=== PATIENT | male | born 1970 | race Caucasian/White ===

== ENCOUNTER 2017-11-29 12:15 | Emergency (ER) | payer OTHER ==
[2017-11-29 12:22] VITALS: BP 116/82; PULSE 85; RESP 18; TEMP 98.5
[2017-11-29] MEDS ORDERED: DIPH,PERTUS(ACELL)TETVAC-LF 0.5 ML VIAL IM ONE (12:27)
[2017-11-29] MEDS ORDERED: TOPICAL SKIN ADHESIVE 1 EACH AMP TOPICAL ONE (12:36)
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
[2017-11-29] MEDS ORDERED: IBUPROFEN 600 MG TAB PO STA (13:02)
--- NOTE | 2017-11-29 13:19 | XR ---
EXAMINATION TYPE: XR hand limited RT DATE OF EXAM: 11/29/2017 CLINICAL HISTORY: pain TECHNIQUE: Frontal, lateral images of the right hand are obtained. COMPARISON: 12/18/2011 FINDINGS: There is no acute fracture/dislocation evident. The joint spaces appear within normal limi ts. The overlying soft tissue appears unremarkable. IMPRESSION: There is no acute fracture or dislocation ICD 10 NO FRACTURE, INITIAL EVALUATION
== END 2017-11-29 13:35 | disposition home or self-care (01) ==
LOC: EC 12:15
DX: S01.81XA Laceration without foreign body of other part of head, initial encounter (principal); M79.644 Pain in right finger(s); F17.200 Nicotine dependence, unspecified, uncomplicated; Z23 Encounter for immunization; W22.8XXA Striking against or struck by other objects, initial encounter; V89.2XXA Person injured in unspecified motor-vehicle accident, traffic, initial encounter; Y93.I9 Activity, other involving external motion; Y92.69 Other specified industrial and construction area as the place of occurrence of the external cause; Y99.0 Civilian activity done for income or pay
CPT/HCPCS: 12011; 90471; 90715; 99283

== ENCOUNTER 2018-02-11 06:33 | Emergency (ER) | payer OTHER ==
[2018-02-11 06:39] VITALS: BP 109/74; PULSE 64; RESP 18; TEMP 98
[2018-02-11] MEDS ORDERED: KETOROLAC 60 MG/2 ML VIAL IM STA (07:12)
[2018-02-11] MEDS ORDERED: ORPHENADRINE 30 MG/ML 2 ML VIAL IM STA (07:12)
--- NOTE | 2018-02-11 07:15 | ED ---
Back Pain HPI - General Chief Complaint: Back Pain/Injury Stated Complaint: back pain Time Seen by Provider: 02/11/18 07:03 Source: patient, RN notes reviewed, old records reviewed Limitations: no limitations - History of Present Illness Initial Comments: Patient is a 47-year-old male with chief complaint of lower back pain, worse with movement and ambulation 3 days. Patient reports that he does work in [employer]. 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 Patient reports that he is a taking ibuprofen and naproxen for pain relief, but it is not helping anymore. He reports the pain seems to be somewhat worse over the right side. He denies any abdominal pain. He denies any peripheral paresthesias or saddle anesthesias.Patient denies any recent fever, chills, shortness of breath, chest pain, abdominal pain, nausea vomiting , numbness or tingling, dysuria or hematuria, constipation or diarrhea, headaches or visual changes, or any other current symptoms - Related Data Home Medications Medication Instructions Recorded Confirmed Aspirin EC [Ecotrin] 325 mg PO DAILY PRN 01/22/17 01/22/17 Previous Rx's Medication Instructions Recorded Acetaminophen-Codeine 300-30mg 1 tab PO Q4H PRN #20 tablet 01/22/17 [Tylenol #3] Cephalexin [Keflex] 500 mg PO Q6HR #40 cap 01/22/17 Ibuprofen [Motrin] 600 mg PO Q8HR PRN #30 tab 01/22/17 Cyclobenzaprine [Flexeril] 10 mg PO TID #12 tab 02/11/18 Ibuprofen 600 mg PO TID #30 tablet 02/11/18 traMADol HCl [Ultram] 50 mg PO Q4HR PRN 3 Days #18 tab 02/11/18 Allergies Allergy/AdvReac Type Severity Reaction Status Date / Time No Known Allergies Allergy Verified 02/11/18 06:38 Review of Systems ROS Statement: Those systems with pertinent positive or pertinent negative responses have been documented in the HPI. ROS Other: All systems not noted in ROS Statement are negative. Past Medical History Past Medical History: No Reported History History of Any Multi-Drug Resistant Organisms: None Reported Past Surgical History: No Surgical Hx Reported Past Psychological History: ADD/ADHD, Anxiety Smoking Status: Current every day smoker Past Alcohol Use History: None Reported Past Drug Use History: None Reported General Exam - General Exam Comments Initial Comments: Well-appearing 47-year-old male. Alert and oriented. Patient appears in no acute distress. Limitations: no limitations General appearance: alert, in no apparent distress Head exam: Present: atraumatic, normocephalic, normal inspection Eye exam: Present: normal appearance, PERRL, EOMI. Absent: scleral icterus, conjunctival injection, periorbital swelling ENT exam: Present: normal exam, mucous membranes moist Neck exam: Present: normal inspection. Absent: tenderness, meningismus, lymphadenopathy Respiratory exam: Present: normal lung sounds bilaterally. Absent: respiratory distress, wheezes, rales, rhonchi, stridor Cardiovascular Exam: Present: regular rate, normal rhythm, normal heart sounds. Absent: systolic murmur, diastolic murmur, rubs, gallop, clicks GI/Abdominal exam: Present: soft, normal bowel sounds. Absent: distended, tenderness, guarding, rebound, rigid Extremities exam: Present: normal inspection, full ROM, normal capillary refill. Absent: tenderness, pedal edema, joint swelling, calf tenderness Back exam: Present: normal inspection, full ROM, tenderness (Over lumbar spine) , muscle spasm, paraspinal tenderness (Patient has lumbar spinal right-sided paraspinal tenderness. Evidence of muscle spasms) Neurological exam: Present: alert, oriented X3, CN II-XII intact Psychiatric exam: Present: normal affect, normal mood Course Vital Signs 02/11/18 06:36 Temperature 98.0 F Pulse Rate 64 Respiratory 18 Rate Blood Pressure 109/74 O2 Sat by Pulse 98 Oximetry Medical Decision Making - Medical Decision Making Patient is a 47-year-old male presents for started to complain of right-sided back pain, worse with past 3 days with ambulation and movement. Patient has lumbar and right-sided para month spinal muscle tenderness. Evidence of muscle spasms at this time. Patient was given IM Norflex and Toradol. He does have some improvement of pain. Denies saddle anesthesias. X-rays were completed today do show mild degenerative changes. No acute osseous lesions. Patient at this time will be discharged with a short course of muscle relaxers, pain medication and anti-inflammatory medication. Discussed close follow-up with orthopedic and primary care physician. All questions answered and return parameters were discussed. - Radiology Data Radiology results: report reviewed No acute osseous lesion. There is mild degenerative changes noted. Mild disc space loss at L1 and L2. Mild hypertrophic spondylolysis at T12-L1 L2-L3. Pedicles intact. Disposition Clinical Impression: DDD (degenerative disc disease), lumbar, Spasm of back muscles Disposition: HOME SELF-CARE Condition: Good Instructions: Acute Low Back Pain (ED) Additional Instructions: Patient advised to take the medications as prescribed. Patient should apply warm compresses over the area to help relax the muscles. Patient should follow- up with back specialist. Return to emergency department if any alarming signs or symptoms occur. Prescriptions: Cyclobenzaprine [Flexeril] 10 mg PO TID #12 tab Ibuprofen 600 mg PO TID #30 tablet traMADol HCl [Ultram] 50 mg PO Q4HR PRN 3 Days #18 tab PRN Reason: Pain Is patient prescribed a controlled substance at d/c from ED?: Yes When asked, does pt state using other controlled substances?: Yes If prescribed controlled substance>3 days was MAPS reviewed?: Prescribed <3 Days If opioid is for acute pain is fill amount 7 days or less?: Yes If Rx opioid, was Start Talking consent form obtained?: Yes Referrals: None,Stated [Primary Care Provider] - 1-2 days Sandra Canseco DO [Doctor of Osteopathic Medicine] - 1-2 days Jaret Daugherty DO [Doctor of Osteopathic Medicine] - 1-2 days Time of Disposition: 07:53
--- NOTE | 2018-02-11 07:48 | XR ---
EXAMINATION TYPE: XR lumbar spine 2 or 3V , 3 VIEWS DATE OF EXAM ORDERED: 02/11/2018 HISTORY: Pain. COMPARISON: None. FINDINGS: There is a gentle levoscoliosis. Vertebral body height and alignment are maintained. There is no spondylolysis or spondylolisthesis. T here is mild disc space loss at L1-2. There is mild hypertrophic spondylosis at T12-L1 and L2-3. The pedicles are intact. IMPRESSION: 1. NO ACUTE OSSEOUS LESION. 2. MILD DEGENERATIVE CHANGE.
== END 2018-02-11 08:09 | disposition home or self-care (01) ==
LOC: EC 06:33
DX: M51.36 Other intervertebral disc degeneration, lumbar region (principal); M47.896 Other spondylosis, lumbar region; F17.200 Nicotine dependence, unspecified, uncomplicated
CPT/HCPCS: 72100; 99284; 96372 ×2; J2360; J1885

== ENCOUNTER 2018-07-19 08:44 | Inpatient (IN) | payer OTHER ==
[2018-07-19] MEDS ORDERED: SODIUM CHLORIDE 0.9% 1,000 ML IV STA ×2 (09:02)
[2018-07-19] MEDS ORDERED: IPRATROPIUM-ALBUTEROL 3 ML NEB INHALATION STA ×2 (09:02→10:23)
[2018-07-19] MEDS ORDERED: SODIUM CHLORIDE 0.9% 500 ML 500 ML IV STA (09:02)
--- NOTE | 2018-07-19 09:04 | ED ---
SOB HPI - General Chief Complaint: Shortness of Breath Stated Complaint: Fever Time Seen by Provider: 07/19/18 09:01 Source: patient, RN notes reviewed, old records reviewed Mode of arrival: ambulatory Limitations: no limitations - History of Present Illness Initial Comments: This is a 47-year-old male the ER for evaluation presented for evaluation of c ough and congestion. No chest pain. Patient afebrile and off for a week patient's been getting better but this point is continues to feel worse. No travel history no known significant sick contacts. No recent hospitalizations. Patient is underlying smoker but no history of COPD MD Complaint: shortness of breath, cough -: week(s) Severity scale (1-10): 5 Consistency: constant Improves With: rest Worsens With: exertion Known History Of: COPD Context: recent URI Associated Symptoms: fever, cough - Related Data Home Medications Medication Instructions Recorded Confirmed Dm/Acetaminophen/Doxylamine [Vicks 30 ml PO Q6H PRN 07/19/18 07/19/18 Nyquil Cold-Flu Liquid] Allergies Allergy/AdvReac Type Severity Reaction Status Date / Time No Known Allergies Allergy Verified 07/19/18 09:32 Review of Systems ROS Statement: Those systems with pertinent positive or pertinent negative responses have been documented in the HPI. ROS Other: All systems not noted in ROS Statement are negative. Past Medical History Past Medical History: No Reported History History of Any Multi-Drug Resistant Organisms: None Reported Past Surgical History: No Surgical Hx Reported Past Psychological History: ADD/ADHD, Anxiety Smoking Status: Current every day smoker Past Alcohol Use History: None Reported Past Drug Use History: None Reported General Exam Limitations: no limitations General appearance: alert, in no apparent distress Head exam: Present: atraumatic, normocephalic, normal inspection Eye exam: Present: normal appearance, PERRL, EOMI. Absent: scleral icterus, conjunctival injection, periorbital swelling ENT exam: Present: normal exam, mucous membranes moist Neck exam: Present: normal inspection. Absent: tenderness, meningismus, lymphadenopathy Respiratory exam: Present: wheezes, accessory muscle use, decreased breath sounds, prolonged expiratory. Absent: respiratory distress, rales, rhonchi, stridor Cardiovascular Exam: Present: normal rhythm, tachycardia, normal heart sounds. Absent: systolic murmur, diastolic murmur, rubs, gallop, clicks GI/Abdominal exam: Present: soft, normal bowel sounds. Absent: distended, tenderness, guarding, rebound, rigid Extremities exam: Present: normal inspection, full ROM, normal capillary refill. Absent: tenderness, pedal edema, joint swelling, calf tenderness Back exam: Present: normal inspection Neurological exam: Present: alert, oriented X3, CN II-XII intact Psychiatric exam: Present: normal affect, normal mood Skin exam: Present: warm, dry, intact, normal color. Absent: rash Course Vital Signs 07/19/18 07/19/18 07/19/18 08:59 09:25 09:30 Temperature 97.9 F Pulse Rate 102 H 77 Respiratory 24 18 18 Rate Blood Pressure 110/75 125/84 O2 Sat by Pulse 95 92 L Oximetry 07/19/18 07/19/18 07/19/18 09:36 09:46 10:33 Temperature Pulse Rate 74 74 80 Respiratory Rate Blood Pressure O2 Sat by Pulse Oximetry 07/19/18 10:50 Temperature Pulse Rate 90 Respiratory Rate Blood Pressure O2 Sat by Pulse Oximetry - Reevaluation(s) Reevaluation #1: 07/19/18 10:25 Neck record reviewed Reevaluation #2: 07/19/18 10:25 Patient is improving with breathing treatments Medical Decision Making - Medical Decision Making 47 male the ER for evaluation cough congestion positive bronchitis, severe bronchitis. Patient improvement with breathing treatments. - Lab Data Result diagrams: 07/19/18 09:33 07/19/18 09:33 Lab Results 07/19/18 07/19/18 07/19/18 Range/Units 09:33 09:33 09:33 WBC 12.1 H (3.8-10.6) k/uL RBC 5.40 (4.30-5.90) m/uL Hgb 16.4 (13.0-17.5) gm/dL Hct 50.2 (39.0-53.0) % MCV 92.9 (80.0-100.0) fL MCH 30.4 (25.0-35.0) pg MCHC 32.7 (31.0-37.0) g/dL RDW 12.9 (11.5-15.5) % Plt Count 202 (150-450) k/uL Neutrophils % 83 % Lymphocytes % 10 % Monocytes % 5 % Eosinophils % 0 % Basophils % 0 % Neutrophils # 10.0 H (1.3-7.7) k/uL Lymphocytes # 1.2 (1.0-4.8) k/uL Monocytes # 0.6 (0-1.0) k/uL Eosinophils # 0.1 (0-0.7) k/uL Basophils # 0.0 (0-0.2) k/uL Sodium 141 (137-145) mmol/L Potassium 4.0 (3.5-5.1) mmol/L Chloride 107 (98-107) mmol/L BUN 18 (9-20) mg/dL Creatinine 0.80 (0.66-1.25) mg/dL Est GFR (CKD-EPI)AfAm >90 (>60 ml/min/1.73 sqM) Est GFR (CKD-EPI)NonAf >90 (>60 ml/min/1.73 sqM) Glucose 121 H (74-99) mg/dL Calcium 9.6 (8.4-10.2) mg/dL Magnesium 2.2 (1.6-2.3) mg/dL Total Bilirubin 1.0 (0.2-1.3) mg/dL AST 61 H (17-59) U/L ALT 64 (21-72) U/L Alkaline Phosphatase 170 H (38-126) U/L Troponin I (0.000-0.034) ng/mL Total Protein 8.1 (6.3-8.2) g/dL Albumin 4.4 (3.5-5.0) g/dL Influenza Type A RNA Not Detected (Not Detectd) Influenza Type B (PCR) Not Detected (Not Detectd) 07/19/18 Range/Units 09:33 WBC (3.8-10.6) k/uL RBC (4.30-5.90) m/uL Hgb (13.0-17.5) gm/dL Hct (39.0-53.0) % MCV (80.0-100.0) fL MCH (25.0-35.0) pg MCHC (31.0-37.0) g/dL RDW (11.5-15.5) % Plt Count (150-450) k/uL Neutrophils % % Lymphocytes % % Monocytes % % Eosinophils % % Basophils % % Neutrophils # (1.3-7.7) k/uL Lymphocytes # (1.0-4.8) k/uL Monocytes # (0-1.0) k/uL Eosinophils # (0-0.7) k/uL Basophils # (0-0.2) k/uL Sodium (137-145) mmol/L Potassium (3.5-5.1) mmol/L Chloride (98-107) mmol/L BUN (9-20) mg/dL Creatinine (0.66-1.25) mg/dL Est GFR (CKD-EPI)AfAm (>60 ml/min/1.73 sqM) Est GFR (CKD-EPI)NonAf (>60 ml/min/1.73 sqM) Glucose (74-99) mg/dL Calcium (8.4-10.2) mg/dL Magnesium (1.6-2.3) mg/dL Total Bilirubin (0.2-1.3) mg/dL AST (17-59) U/L ALT (21-72) U/L Alkaline Phosphatase (38-126) U/L Troponin I <0.012 (0.000-0.034) ng/mL Total Protein (6.3-8.2) g/dL Albumin (3.5-5.0) g/dL Influenza Type A RNA (Not Detectd) Influenza Type B (PCR) (Not Detectd) - EKG Data -: EKG Interpreted by Me (EKG shows sinus rhythm rate of 79, MT 136, QRS 110, QTc 470) - Radiology Data Radiology results: report reviewed (S x-rays negative for acute disease), image reviewed Disposition Clinical Impression: Acute exacerbation of chronic obstructive airways disease Disposition: ADMITTED IP TO THIS HOSP Condition: Good Instructions (If sedation given, give patient instructions): Acute Bronchitis (ED) Is patient prescribed a controlled substance at d/c from ED?: No Referrals: None,Stated [Primary Care Provider] - 1-2 days
[2018-07-19 09:58] LABS: Basophils % (A) 0 %; Eosinophils # (A) 0.1 k/uL (0-0.7); Eosinophils % (A) 0 %; HCT 50.2 % (39.0-53.0); HGB 16.4 gm/dL (13.0-17.5); Lymphocytes # (A) 1.2 k/uL (1.0-4.8); Lymphocytes % (A) 10 %; MCH 30.4 pg (25.0-35.0); MCHC 32.7 g/dL (31.0-37.0); MCV 92.9 fL (80.0-100.0); Monocytes # (A) 0.6 k/uL (0-1.0); Monocytes % (A) 5 %; Neutrophils % (A) 83 %; Platelet Count 202 k/uL (150-450); RDW 12.9 % (11.5-15.5); WBC 12.1 k/uL (3.8-10.6)
--- NOTE | 2018-07-19 10:11 | XR ---
EXAMINATION TYPE: XR chest 2V DATE OF EXAM: 07/19/2018 COMPARISON: Prior chest x-ray 01/26/2015 HISTORY: Difficulty breathing TECHNIQUE: Frontal and lateral views of the chest are obtained. FINDINGS: There is no focal air space opacity, pleural effusion, or pneumothorax seen. The cardiac silhouette size is within normal limits. The osseous structures are intact, there is a spinal curva ture. Prominent lung volume may be indicative of underlying COPD. There is bronchial wall thickening. IMPRESSION: Correlate for bronchiolitis, reactive airways disease.
[2018-07-19 10:15] LABS: ALT 64 U/L (21-72); AST 61 U/L (17-59); Albumin 4.4 g/dL (3.5-5.0); Alkaline Phosphatase 170 U/L (38-126); Blood Urea Nitrogen 18 mg/dL (9-20); Calcium 9.6 mg/dL (8.4-10.2); Chloride 107 mmol/L (98-107); Glucose 121 mg/dL (74-99); Magnesium 2.2 mg/dL (1.6-2.3); Sodium 141 mmol/L (137-145); Total Protein 8.1 g/dL (6.3-8.2)
[2018-07-19] MEDS ORDERED: methylPREDNISolone SOD SUCCI 125 MG/2 ML VIAL IV STA (10:23)
[2018-07-19] MEDS ORDERED: AZITHROMYCIN 500 MG in SODIUM CHLORIDE 0.9% 250 ML IVPB STA (10:26)
[2018-07-19 11:02] LABS: Anion Gap 11 mmol/L; Carbon Dioxide 23 mmol/L (22-30)
[2018-07-19] MEDS: methylPREDNISolone SOD SUCCI 125 MG/2 ML VIAL IV SCH ×2 (12:38→20:24)
[2018-07-19] MEDS: SODIUM CHLORIDE 0.9% 1,000 ML IV SCH (12:39)
[2018-07-19 14:19] VITALS: BMI 29.7
[2018-07-19] MEDS ORDERED: INFLUENZA VACCINE (6 MOS+) 60 MCG/0.5 ML SYRINGE IM ONE (14:22)
[2018-07-19] MEDS ORDERED: PNEUMOCOCCAL VACC-PNEUMOVAX 23 25 MCG/0.5 ML VIAL IM ONE (14:22)
[2018-07-19] MEDS: IPRATROPIUM-ALBUTEROL 3 ML NEB INHALATION SCH ×3 (16:05→19:35)
[2018-07-19] MEDS: NICOTINE 21MG/24HR PATCH TRANSDERM SCH (20:23)
[2018-07-19] MEDS: guaiFENesin-Coden 100-10MG/5ML 10 ML CUP PO PRN (20:27)
[2018-07-20] MEDS: methylPREDNISolone SOD SUCCI 125 MG/2 ML VIAL IV SCH ×5 (01:44→23:59)
[2018-07-20] MEDS: SODIUM CHLORIDE 0.9% 1,000 ML IV SCH ×3 (05:47→18:35)
[2018-07-20 06:45] LABS: Glucose,Whole Blood 160 mg/dL (75-99)
[2018-07-20] MEDS: NICOTINE 21MG/24HR PATCH TRANSDERM SCH (08:38)
[2018-07-20] MEDS: AZITHROMYCIN 500 MG TAB PO SCH (08:39)
[2018-07-20] MEDS: INSULIN ASPART (NovoLOG) 100 UNIT/ML VIAL SQ SCH ×4 (08:39→20:35)
[2018-07-20] MEDS: BUDESONIDE 0.5 MG/2 ML NEBU INHALATION SCH ×2 (08:43→21:10)
[2018-07-20] MEDS: IPRATROPIUM-ALBUTEROL 3 ML NEB INHALATION SCH ×4 (08:43→21:09)
[2018-07-20 11:32] LABS: Glucose,Whole Blood 183 mg/dL (75-99)
[2018-07-20 16:43] LABS: Glucose,Whole Blood 224 mg/dL (75-99)
[2018-07-20] MEDS: ACETAMINOPHEN TAB 325 MG TAB PO PRN (17:35)
--- NOTE | 2018-07-20 18:56 | HP ---
HISTORY AND PHYSICAL CHIEF COMPLAINT: COPD and respiratory failure, failing outpatient treatment. HISTORY OF PRESENT ILLNESS: This is the first known admission for this 47-year-old white male who presented to the emergency room with cough and congestion and shortness of breath. This had been going on for about a week. He is not febrile. He has had no hemoptysis, purulent sputum production, chest pain, etc. He has otherwise been in fairly good health. Laboratory studies in the emergency room demonstrated white count of 12,100. His hematocrit was high at 50.2. He was admitted for inpatient treatment. REVIEW OF SYSTEMS: Review of systems was otherwise normal. He has had no heart disease, nausea, vomiting, hematemesis, renal disease, diabetes, etc. He has not been on any medications at home. PHYSICAL EXAMINATION: Blood pressure 122/66, pulse of 92, respirations 17, temperature 98.3. In general he appeared to be slender. He had no acute distress. He did have a harsh dry cough. Head, ears, eyes, nose, mouth and throat were normal. Neck veins were not distended. Thyroid was not enlarged. Chest demonstrated slightly increased AP diameter with decreased breath sounds throughout. He had inspiratory and expiratory wheezing throughout with scattered rales and occasional rhonchi. Cardiac exam demonstrated sinus rhythm. The abdomen was flat and soft. Extremities were normal. IMPRESSION: Exacerbation of chronic obstructive pulmonary disease. PLAN: 1. Bed rest. 2. IV fluids. 3. IV and inhaled steroids. 4. Updrafts. LAWANDA / STUARTN: [id number] /
[2018-07-20 19:56] LABS: Glucose,Whole Blood 164 mg/dL (75-99)
[2018-07-20] MEDS: guaiFENesin-Coden 100-10MG/5ML 10 ML CUP PO PRN (21:26)
--- NOTE | 2018-07-20 22:08 | PN ---
PROGRESS NOTE CHIEF COMPLAINT: COPD. HISTORY OF PRESENT ILLNESS: This gentleman is a still very short of breath and does not feel like he is improved. He denies chest pain or fever. PHYSICAL EXAM: He still has poor breath sounds anterior and posteriorly with rales, rhonchi and inspiratory and expiratory wheezing. There is tachycardia. IMPRESSION: Exacerbation of chronic obstructive pulmonary disease. PLAN: Continue with current program. MMSESAR / VIOLET: [id number] /
[2018-07-21 07:01] LABS: Glucose,Whole Blood 152 mg/dL (75-99)
[2018-07-21] MEDS: methylPREDNISolone SOD SUCCI 125 MG/2 ML VIAL IV SCH ×4 (07:01→23:17)
[2018-07-21] MEDS: IPRATROPIUM-ALBUTEROL 3 ML NEB INHALATION SCH ×4 (07:36→20:38)
[2018-07-21] MEDS: BUDESONIDE 0.5 MG/2 ML NEBU INHALATION SCH ×2 (07:36→20:38)
[2018-07-21] MEDS: SODIUM CHLORIDE 0.9% 1,000 ML IV SCH ×3 (08:14→23:19)
[2018-07-21] MEDS: AZITHROMYCIN 500 MG TAB PO SCH (08:15)
[2018-07-21] MEDS: INSULIN ASPART (NovoLOG) 100 UNIT/ML VIAL SQ SCH ×4 (08:15→21:14)
[2018-07-21] MEDS: NICOTINE 21MG/24HR PATCH TRANSDERM SCH (08:15)
[2018-07-21 12:21] LABS: Glucose,Whole Blood 175 mg/dL (75-99)
[2018-07-21] MEDS: ACETAMINOPHEN TAB 325 MG TAB PO PRN (13:00)
[2018-07-21] MEDS: guaiFENesin-Coden 100-10MG/5ML 10 ML CUP PO PRN ×2 (13:00→21:14)
--- NOTE | 2018-07-21 15:33 | PN ---
PROGRESS NOTE CHIEF COMPLAINT: Exacerbation of COPD. HISTORY OF PRESENT ILLNESS: This gentleman is doing much better, but he is still somewhat wheezy. PHYSICAL EXAMINATION: He still has bilateral rhonchi with rales and expiratory wheezing. Cardiac exam is normal. IMPRESSION: Exacerbation of chronic obstructive pulmonary disease. PLAN: Continue current program and probably home tomorrow. MMODL / IJN: [id number] /
[2018-07-21 15:51] VITALS: RESP 18
[2018-07-21 17:13] LABS: Glucose,Whole Blood 193 mg/dL (75-99)
[2018-07-21 21:09] LABS: Glucose,Whole Blood 181 mg/dL (75-99)
[2018-07-22] MEDS: methylPREDNISolone SOD SUCCI 125 MG/2 ML VIAL IV SCH ×3 (05:49→17:18)
[2018-07-22 07:07] LABS: Glucose,Whole Blood 145 mg/dL (75-99)
[2018-07-22] MEDS: BUDESONIDE 0.5 MG/2 ML NEBU INHALATION SCH (08:02)
[2018-07-22] MEDS: IPRATROPIUM-ALBUTEROL 3 ML NEB INHALATION SCH ×3 (08:02→15:46)
[2018-07-22] MEDS: guaiFENesin-Coden 100-10MG/5ML 10 ML CUP PO PRN (08:06)
[2018-07-22] MEDS: NICOTINE 21MG/24HR PATCH TRANSDERM SCH (08:06)
[2018-07-22] MEDS: AZITHROMYCIN 500 MG TAB PO SCH (08:07)
[2018-07-22] MEDS: INSULIN ASPART (NovoLOG) 100 UNIT/ML VIAL SQ SCH ×3 (08:07→17:18)
[2018-07-22 11:34] LABS: Glucose,Whole Blood 142 mg/dL (75-99)
[2018-07-22] MEDS: SODIUM CHLORIDE 0.9% 1,000 ML IV SCH (12:46)
[2018-07-22 15:46] VITALS: BP 132/80; TEMP 98.2
[2018-07-22 15:57] VITALS: PULSE 90
[2018-07-22 16:52] LABS: Glucose,Whole Blood 162 mg/dL (75-99)
--- NOTE | 2018-07-22 23:25 | DS ---
DISCHARGE SUMMARY CHIEF COMPLAINT: Difficulty breathing. HISTORY OF PRESENT ILLNESS AND PHYSICAL EXAM: Details of this man's history and physical can be found in the initial workup. LABORATORY STUDIES: While he was in the hospital, he had laboratory studies, details of which can be found in the laboratory section of his chart. COURSE IN HOSPITAL: After admission, he was placed on bedrest, started on intravenous fluids and IV and inhaled steroids. Chest is slowly clearing. He was doing well enough to go home on the . He will be discharged on Ventolin MDI, Symbicort 160/4.5 two puffs twice a day, and a Medrol Dosepak and be seen in the office in a day or 2. FINAL DIAGNOSIS: Exacerbation of chronic obstructive pulmonary disease. OPERATIONS: None. CONSULTATION: None. He is improved. He is improved. MMODL / IJN: [id number] /
[2018-07-23] MEDS ORDERED: methylPREDNISolone 4 MG TAB TAPER PO SCH (09:00)
--- NOTE | 2018-07-27 12:26 | CDI ---
Documentation Clarification Form Date: 07/23/2018 4:13:00 PM From: Josefina Cruz Julita Rowell, Sebd Teacher Hours-8:30 am & 5 pm MBrianne Admit Date: 07/20/2018 10:57:00 AM Patient Name: Alexi Pelaez Visit Number: [id number] Discharge Date: 07/22/2018 7:26:00 PM ATTENTION: The Clinical Documentation Specialists (CDI) and [facility] Coding Staff appreciate your assistance in clarifying documentation. Please respond to the clarification below the line at the bottom and electronically sign. The CDI & [facility] Coding staff will review the response and follow-up if needed. Please note: Queries are made part of the Legal Health Record. If you have any questions, please contact the author of this message via ITS. Dr. Sony Bergman The patient presented with the following respiratory symptoms SOB. H and P documents chief complaint as COPD and respiratory failure. Please clarify type of respiratory failure if acute or chronic. History/Risk Factors: + tobacco, COPD exacerbation Tobacco use: yes Clinical Indicators: cough congestion and SOB wheezing scattered rales Vital signs: 97.9 F 102 24 110/75 95 RA then 92 RA Treatment Bed rest IV fluids IV and inhaled steroids and updrafts In your professional opinion, can you please clarify if these findings signify one of the following conditions? Acuity Acute Chronic Acute on Chronic Specificity Respiratory Failure (further specify (if known)): With hypercapnia? (pCO2 >50 and pH <7.35) With hypoxia? (pO2 <60 mm Hg or SpO2 <91% on room air) Respiratory Distress Respiratory Insufficiency Other Diagnosis, please specify Unable to determine MTDD
--- NOTE | 2018-07-28 13:43 | MISC ---
MISCELLANOUS REPORT QUERY Acute on chronic respiratory distress. MMODL / IJN: [id number] /
--- NOTE | 2018-07-28 13:52 | MISC ---
MISCELLANOUS REPORT QUERY Acute on chronic diagnosis of exacerbation of COPD. MMODL / IJN: [id number] /
== END 2018-07-22 19:26 | disposition home or self-care (01) | DRG 192 ==
LOC: EC 08:44 → 3NMEDONC 10:56 → 4SSUR 17:43 → OBSVTOIN 07-20 10:57
PROVIDERS: ADMIT Family Medicine; ATTEND Family Medicine
DX: J44.1 Chronic obstructive pulmonary disease with (acute) exacerbation (principal); R06.03 Acute respiratory distress; F17.200 Nicotine dependence, unspecified, uncomplicated; F90.9 Attention-deficit hyperactivity disorder, unspecified type; F41.9 Anxiety disorder, unspecified
CPT/HCPCS: 36415; 71046; 80053; 83735; 84484; 85025; 87040; 87502; 90686; 90732; 93005; 94640; 94760; 96361; 96365; 96366; 96375; 99285

== ENCOUNTER 2023-11-15 15:18 | Emergency (ER) | payer OTHER ==
[2023-11-15] MEDS ORDERED: SODIUM CHLORIDE 0.9% 1,000 ML BAG ONE (17:05)
[2023-11-15] MEDS ORDERED: ONDANSETRON 4 MG/2 ML VIAL ONE (17:06)
== END 2023-11-15 18:54 | disposition left against medical advice (07) ==
LOC: EC 15:18
DX: R11.2 Nausea with vomiting, unspecified (principal); R19.7 Diarrhea, unspecified; Z53.29 Procedure and treatment not carried out because of patient's decision for other reasons
CPT/HCPCS: 87651; 80053; 83690; 85025; 81003; 87636; 99283; J2405